=== PATIENT | female | born 1985 | race Hispanic/Latino ===

== ENCOUNTER 2018-05-30 10:34 | Outpatient (CLI) | payer BC | END 2018-05-30 10:35 | disposition home or self-care (01) | LOC: BICULT 10:34 | PROVIDERS: ATTEND Family Medicine | DX: Z34.82 Encounter for supervision of other normal pregnancy, second trimester (principal); Z3A.19 19 weeks gestation of pregnancy | CPT/HCPCS: 76805 ==

== ENCOUNTER 2018-07-11 07:45 | Outpatient (CLI) | payer BC ==
--- NOTE | 2018-07-11 09:54 | ULT ---
OB ULTRASOUND: HISTORY: Low-lying placenta on prior ultrasound of 06/09/18. Followup. FINDINGS: A single live intrauterine gestation is seen with measurements corresponding to an estimated gestatio nal age of 25 weeks 2 days and ARCHANA at 10/22/18. The estimated weight measures 801 grams (1.1). measurements are as follows: BPD 5.86 cm, 24 weeks 0 days HC 23.48 cm, 24 weeks 4 days AC 20.45 cm, 25 weeks 1 day FL 4.77 cm, 26 weeks 0 days The heart rate measures 146 b.p.m. Placenta is posteriorly located and is low-lying. TODD taylor ures 13.5 cm. IMPRESSION: 1. Single live intrauterine of 25 weeks 2 days, estimated gestational age and estimated da te of delivery at 10/22/18. 2. Low-lying placenta. POS: [facility]
== END 2018-07-11 07:46 | disposition home or self-care (01) ==
LOC: BICULT 07:45
PROVIDERS: ATTEND Family Medicine
DX: O44.42 Low lying placenta NOS or without hemorrhage, second trimester (principal); Z3A.25 25 weeks gestation of pregnancy
CPT/HCPCS: 76816

== ENCOUNTER 2018-08-25 09:31 | Outpatient (CLI) | payer BC ==
--- NOTE | 2018-08-25 12:25 | ULT ---
ULTRASOUND OBSTETRICAL COMPLETE: Date: 08/25/18 HISTORY: Follow-up low-lying placenta in 32-year-old female. COMPARISON: 07/11/18. FINDINGS: number: Rodriguez. lie: variable. Maternal cervix: 6.5 cm in length and closed. Placenta: Posterior and low-lying. Previously, the distance between the internal cervical os and the inferior edge of the placenta was 1.5 cm. The tip of the placenta appears closer to the internal os o n the current study, approximately 1.0 cm. This could be due to technical differences. It probably crouch s not significantly changed. Amniotic fluid volume: Subjectively normal. heart rate: 153 bpm. anatomy was not evaluated in detail. biometry: Head circumference (HC): 29.6 cm 32w 6d Biparietal diameter (BPD): 7.8 cm 31w 3d Abdominal circumference (AC): 29.4 cm 33w 3d Femur length (FL): 6.1 cm 31w 5d Average ultrasound age (AUA): 32w 3d Estimated date of delivery (ARCHANA): 10/18/2018. Last menstrual period (LMP): 01/12/2018. Gestational age by LMP: 32w 1d Estimated weight (EFW): 2016 g +/- 294 g. IMPRESSION: 1. Live third trimester intrauterine gestation. 2. Estimated gestational age of 32 weeks, 3 days. 3. Variable lie. 4. Low-lying placenta. FLOYD Ly POS: [facility]
== END 2018-08-25 09:32 | disposition home or self-care (01) ==
LOC: BICULT 09:31
PROVIDERS: ATTEND Family Medicine
DX: O44.43 Low lying placenta NOS or without hemorrhage, third trimester (principal); Z3A.32 32 weeks gestation of pregnancy
CPT/HCPCS: 76816

== ENCOUNTER 2018-10-01 15:07 | Inpatient (IN) | payer BC ==
[2018-10-13] MEDS ORDERED: Bicitra 30 ML UDCUP PO SCH (10:06)
[2018-10-13] MEDS ORDERED: Promethazine HCl 25 MG/ML VIAL IM PRN ×2 (10:06→17:49)
[2018-10-13] MEDS ORDERED: CEFAZOLIN/Water 2 GM/20 ML SYRINGE SLOW IVP SCH (10:06)
[2018-10-13] MEDS ORDERED: Lactated Ringer's 1,000 ML IV SCH ×2 (10:06→14:36)
[2018-10-13] MEDS ORDERED: Ondansetron PF 4 MG/2 ML Vial IVP PRN ×3 (10:06→17:49)
[2018-10-13 10:28] VITALS: BMI 39.1
[2018-10-13] MEDS ORDERED: CEFAZOLIN 2 GM/50 ML-DEXTROSE 2 GM in Premix Bag 1 BAG IVPB SCH ×2 (10:30→12:00)
[2018-10-13 11:16] LABS: Hemoglobin 12.9 g/dL (12.0-16.0); Mean Corpuscular HGB CONC 34.6 g/dL (32.0-36.0); Mean Corpuscular Hemoglobin 31.9 pg (27.0-31.0); Mean Corpuscular Volume 92.1 fL (78.0-98.0); Mean Platelet Volume 8.9 fL (7.4-10.4); Platelet Count 180 thou/uL (130-400); RBC Distribution Width 12.5 % (11.5-14.5); Red Blood Cell (RBC) Count 4.03 mill/uL (4.20-5.40); White Blood Cell (WBC) Count 8.4 thou/uL (4.8-10.8)
[2018-10-13] MEDS ORDERED: ePHEDrine/0.9% NaCl/PF SYRINGE 50 mg/10 ml ONE (11:48)
[2018-10-13] MEDS ORDERED: Morphine PF 1 MG/ML SYR ONE (11:53)
[2018-10-13] MEDS ORDERED: Succinylcholine Chloride 20 MG/ML 10 ml SYRINGE FS ONE ×2 (11:56→12:01)
[2018-10-13] MEDS ORDERED: Oxytocin 10 UNITS/ML VIAL ONE ×2 (11:56→11:59)
[2018-10-13] MEDS ORDERED: PROPOFOL 20 ML ONE ×2 (11:56→11:59)
[2018-10-13 12:00] LABS: Syphilis Antibody Nonreactive (Nonreactive); Syphilis Antibody Index 0.04 S/CO (<1.00 Non-Reactive)
[2018-10-13] MEDS ORDERED: Ondansetron PF 4 MG/2 ML Vial ONE (12:00)
[2018-10-13 12:01] LABS: Hep B Surf Ag Non-Reactive S/CO (NonReactive)
[2018-10-13] MEDS ORDERED: Meperidine HCl/PF 25 MG/ML VIAL SLOW IVP PRN (12:46)
[2018-10-13] MEDS ORDERED: HYDROmorphone 2 MG/ML VIAL SLOW IVP PRN (12:46)
[2018-10-13] MEDS ORDERED: L&D-Morphine 4 MG/ML VIAL SLOW IVP PRN (12:46)
[2018-10-13] MEDS ORDERED: Ondansetron HCl/PF 4 MG/2 ML Vial IVP PRN (12:46)
[2018-10-13] MEDS ORDERED: Ketorolac Tromethamine 30 MG/ML VIAL IVP SCH (13:00)
[2018-10-13] MEDS ORDERED: Ketorolac Tromethamine 30 MG/ML VIAL ONE (13:59)
[2018-10-13] MEDS ORDERED: diphenhydrAMINE 25 MG CAP PO PRN (14:36)
[2018-10-13] MEDS ORDERED: Lanolin Ointment 7 GM TUBE TOP PRN (14:36)
[2018-10-13] MEDS ORDERED: Acetaminophen/Codeine 30-300mg Tablet PO PRN (14:36)
[2018-10-13] MEDS ORDERED: Acetaminophen 325 MG TAB PO PRN (14:36)
[2018-10-13] MEDS ORDERED: HYDROcodone/Acetaminophen 5/325 mg Tablet PO PRN (14:36)
[2018-10-13] MEDS ORDERED: NS / Oxytocin 40 units/1000ml 1,000 ML ONE (15:12)
[2018-10-13] MEDS: Ibuprofen 800 MG TAB PO SCH (16:59)
--- NOTE | 2018-10-13 17:16 | OP ---
DATE OF PROCEDURE: 10/13/2018 PREOPERATIVE DIAGNOSIS: Term intrauterine with previous section and low posterior placenta. POSTOPERATIVE DIAGNOSIS: Term intrauterine with previous section and low posterior placenta, status post delivery. PROCEDURE PERFORMED: Repeat low-transverse section. AGRICULTURAL INSPECTOR: Tariq Hurt MD ANESTHESIA: Spinal anesthesia. COMPLICATIONS: No complications. DESCRIPTION OF PROCEDURE: After adequate spinal anesthetic, the patient was placed in supine position. Siddiqui catheter was placed. A wedge was placed under right flank and the abdomen was prepped and draped in usual sterile technique. A Pfannenstiel incision was made to the old scar. Subcutaneous tissue was opened with sharp dissection. Fascia was opened with sharp and blunt dissection as well as peritoneum. Noted that the abdomen was filled with gravid uterus and Bogdan O retractor was placed and a bladder flap was incised inferiorly. A low-transverse incision was made on the uterus. Membranes were ruptured. Clear fluid was encountered, and a viable female infant was delivered from vertex presentation. Infant breathed and cried spontaneously for approximately 30 seconds. The cord was clamped and cut. Infant was handed to the care of the neonatology team. Cord blood was obtained, and the placenta was delivered manually and appeared intact. A wet lap was used to wipe and clean uterus and the hysterotomy edges were grasped with ring forceps and the hysterotomy was then closed in continuous fashion using 0 Monopril suture. Hemostasis was adequate. There was no bleeding from the bladder flap or peritoneal edges. The Bogdan O retractor was removed, and the peritoneum was then closed in continuous fashion using 2-0 chromic. The fascia was then closed in continuous fashion using 0 Vicryl. Sponge and instrument counts were correct. Additional 2-0 plain suture was used to approximate subcutaneous tissue and the skin was closed using alexandra. The patient tolerated the procedure well, did go to recovery room in good condition. Noted the estimated blood loss was 500 mL. Noted the baby is a viable female , weight 7 pounds 12 ounces, Apgars 9 at one minute and 9 at five minutes, and level 1 nursery without complications. Job ID: [id number]
[2018-10-13] MEDS ORDERED: diphenhydrAMINE 50 MG/ML VIAL IVP PRN (17:49)
[2018-10-13] MEDS ORDERED: Hydrocerin (Eucerin) Cream 120 gm Jar TOP PRN (17:49)
[2018-10-13] MEDS ORDERED: Promethazine HCl 25 MG SUPP PR PRN (17:49)
[2018-10-13] MEDS ORDERED: Naloxone HCl 0.4 mg/ml Vial IV PRN ×3 (17:49)
[2018-10-13] MEDS ORDERED: Ketorolac Tromethamine 30 MG/ML VIAL IVP PRN (17:49)
[2018-10-13] MEDS ORDERED: NO PO,IM,IV OR SC NARCOTICS FOR 12HR EXCEPT BY ANESTHESIA PO SCH (17:49)
[2018-10-14] MEDS: Ibuprofen 800 MG TAB PO SCH ×4 (02:45→21:12)
[2018-10-14] MEDS ORDERED: Acetaminophen/Codeine 30-300mg Tablet PO PRN (05:50)
[2018-10-14 07:07] LABS: Hemoglobin 10.4 g/dL (12.0-16.0); Mean Corpuscular HGB CONC 34.2 g/dL (32.0-36.0); Mean Corpuscular Hemoglobin 31.9 pg (27.0-31.0); Mean Corpuscular Volume 93.2 fL (78.0-98.0); Mean Platelet Volume 8.6 fL (7.4-10.4); Platelet Count 161 thou/uL (130-400); RBC Distribution Width 12.4 % (11.5-14.5); Red Blood Cell (RBC) Count 3.27 mill/uL (4.20-5.40); White Blood Cell (WBC) Count 9.7 thou/uL (4.8-10.8)
[2018-10-14] MEDS: HYDROcodone/Acetaminophen 5/325 mg Tablet PO PRN ×4 (09:02→21:12)
[2018-10-14] MEDS: Prenatal Vitamin 1 TAB PO SCH (09:02)
--- NOTE | 2018-10-14 14:35 | PRG ---
DATE OF SERVICE: SUBJECTIVE: The patient is doing well postop day #1 status post repeat low transverse section. Minimal abdominal pain. OBJECTIVE: VITAL SIGNS: Temp 98.1, pulse 86, respirations 20, pulse ox 97%, blood pressure 123/56. HEART: Regular rate and rhythm. LUNGS: Clear. ABDOMEN: Soft. Incision clear. LABORATORY DATA: H and H 10.4 and 30.5. ASSESSMENT: Postop day #1 status post repeat low transverse section. PLAN: 1. Increase activity. 2. Advance diet. 3. Plan discharge in the next 1 to 2 days. Job ID: [id number]
[2018-10-15] MEDS: Ibuprofen 800 MG TAB PO SCH (06:18)
[2018-10-15 08:08] VITALS: BP 112/64; TEMP 98
[2018-10-15] MEDS: Prenatal Vitamin 1 TAB PO SCH (09:50)
== END 2018-10-15 10:30 | disposition home or self-care (01) | DRG 787 ==
LOC: L&D 10-13 09:57 → 3SW 10-13 15:43
PROVIDERS: ADMIT Family Medicine; ATTEND Family Medicine
PROC: 10D00Z1 Extraction of Products of Conception, Low, Open Approach (ICD-10-PCS; principal; 2018-10-13)
DX: O34.211 Maternal care for low transverse scar from previous cesarean delivery (principal); O44.43 Low lying placenta NOS or without hemorrhage, third trimester; O24.425 Gestational diabetes mellitus in childbirth, controlled by oral hypoglycemic drugs; Z3A.39 39 weeks gestation of pregnancy; Z37.0 Single live birth
CPT/HCPCS: 36415; 85027; 86780; 86850; 86900; 86901; 87340; J1885; J2274; J2405; J2590; J2704

== ENCOUNTER 2018-10-09 14:05 | Day surgery (SDC) | payer BC ==
[2018-10-09 14:23] VITALS: BMI 38.9
[2018-10-09 14:46] VITALS: BP 127/77; TEMP 98.2
--- NOTE | 2018-10-09 20:30 | PRG ---
DATE OF SERVICE: 10/09/2018 PRIMARY OB: Dr. Laura Hurt. CHIEF COMPLAINT: Routine antepartum surveillance. HISTORY OF PRESENT ILLNESS: The patient is a 32-year-old female with an intrauterine at 38 weeks and 4 days, who is presenting to Labor and Delivery for routine antepartum surveillance. Her past medical history is complicated by gestational diabetes. She is on 1500 mg of metformin extended release at night and 2.5 mg of glipizide during the day. The patient reports that her blood sugars are elevated about half the time. She reports good fasting blood sugars, but reports that her blood sugars after her meals are consistently elevated when she eats things that she knows she should not. The patient is scheduled for a next week. She denies any labor complaints. PAST MEDICAL HISTORY: Gestational diabetes. PAST SURGICAL HISTORY: Prior x1. OBSTETRIC HISTORY: The patient has a low-lying placenta, possible marginal previa based on the patient's subjective history. REVIEW OF SYSTEMS: Per HPI. PHYSICAL EXAMINATION: VITAL SIGNS: Today, blood pressure is 138/86, heart rate of 80, respiratory rate of 18, temperature 98.1. GENERAL: She appears to be in no acute distress. She is alert, oriented, cooperative, and pleasant to interact with. HEAD: Normocephalic, atraumatic. LUNGS: Clear to auscultation bilaterally. HEART: Regular rate and rhythm. ABDOMEN: Gravid, nontender. EXTREMITIES: Nontender, nonedematous. HEART TRACING RECORD: NST shows a baseline in the 120s with moderate long-term variability, positive 15 x 15 accelerations, and no decelerations. Tocometer showing irritability and contractions. They are mildly felt by the patient. ASSESSMENT AND PLAN: The patient is a 32-year-old female with an intrauterine at 38 weeks and 4 days, scheduled for early next week. The patient has a reactive NST and is being discharged to home with followup as scheduled. The patient has been given term labor precautions and will be returning as scheduled for her repeat . Job ID: [id number]
== END 2018-10-09 15:18 | disposition home or self-care (01) ==
LOC: L&D/OP 14:05
PROVIDERS: ATTEND Family Medicine
DX: Z01.89 Encounter for other specified special examinations (principal); O24.415 Gestational diabetes mellitus in pregnancy, controlled by oral hypoglycemic drugs; Z3A.38 38 weeks gestation of pregnancy; Z79.84 Long term (current) use of oral hypoglycemic drugs
CPT/HCPCS: 59025; 81003; 99282